=== PATIENT | male | born 1945 | race African-American/Black ===

== ENCOUNTER 2017-11-05 05:14 | Emergency (ER) | payer OTHER, MEDICARE ==
[2017-11-05 05:23] VITALS: BP 81/52; BMI 23.0
[2017-11-05] MEDS ORDERED: SODIUM CHLORIDE 1,000 ML IV STA (05:31)
--- NOTE | 2017-11-05 05:33 | PDOC ---
History of Present Illness - General History Source: Patient Exam Limitations: No Limitations - History of Present Illness Initial Comments: 11/05/17 05:44 The patient is a 71 year old male with a significant PMH of HTN who presents to the emergency department with generalized malaise and multiple associated complaints beginning approximately 2 days ago. The patient states he has not felt well for the past 2 days and is unable to adequately sleep. He states he feels like his blood pressure is low as he has also felt dizzy and weak over the same time period. The patient also reports associated intermittent nausea, shortness of breath, and palpitations. The patient states he has not eaten in the past 2 days secondary to his symptoms. The patient notes he has felt these symptoms in the past but is unsure what brings them about. The patient denies recent travel or sick contacts. He denies recent trauma. The patient denies chest pain and headache. Denies fever, chills, vomit, diarrhea and constipation. Denies dysuria, frequency, urgency and hematuria. Allergies: NKA Past surgical history: None reported. Social history: No reported cigarette, alcohol, or drug use. PCP: Dr. Mancia <Archie Guardado - Last Filed: 11/05/17 05:58> - General History Source: Patient <GuillermoFerny - Last Filed: 11/06/17 19:53> - General Chief Complaint: Blood Pressure Problem Stated Complaint: HYPOTENSION Time Seen by Provider: 11/05/17 05:24 Past History <Archie Guardado - Last Filed: 11/05/17 05:58> - Suicide/Smoking/Psychosocial Hx Smoking History: Never smoked Have you smoked in the past 12 months: No Information on smoking cessation initiated: No Hx Alcohol Use: No Drug/Substance Use Hx: No <Ferny Duran - Last Filed: 11/06/17 19:53> - Past Medical History Allergies/Adverse Reactions: Allergies Allergy/AdvReac Type Severity Reaction Status Date / Time No Known Allergies Allergy Verified 11/05/17 05:23 Home Medications: Ambulatory Orders Telmisartan 0 mg PO DAILY PRN 11/05/17 Review of Systems - Review of Systems Able to Perform ROS?: Yes Comments:: 11/05/17 05:44 CONSTITUTIONAL: (+) Generalized malaise. (+) Generalized weakness. (+) Loss of appetite. (+) Decreased sleep. Absent: fever, chills, diaphoresis. HEENT: Absent: rhinorrhea, nasal congestion, throat pain, throat swelling, difficulty swallowing, mouth swelling, ear pain, eye pain, visual Changes CARDIOVASCULAR: (+) Palpitations. Absent: chest pain, syncope,, irregular heart rate, lightheadedness, peripheral edema RESPIRATORY: (+) SHortness of breath. Absent: cough, dyspnea with exertion, orthopnea, wheezing, stridor, hemoptysis GASTROINTESTINAL: (+) Nausea. Absent: abdominal pain, abdominal distension, nausea, vomiting, diarrhea, constipation, melena, hematochezia GENITOURINARY: Absent: dysuria, frequency, urgency, hesitancy, hematuria, flank pain, genital pain MUSCULOSKELETAL: Absent: myalgia, arthralgia, joint swelling SKIN: Absent: rash, itching, pallor HEMATOLOGIC/IMMUNOLOGIC: Absent: easy bleeding, easy bruising, lymphadenopathy, frequent infections ENDOCRINE: Absent: unexplained weight gain, unexplained weight loss, heat intolerance, cold intolerance NEUROLOGIC: (+) Dizziness. Absent: headache, focal weakness or paresthesias, unsteady gait, seizure, mental status changes, bladder or bowel incontinence PSYCHIATRIC: Absent: anxiety, depression, suicidal or homicidal ideation, hallucinations. <Archie Guardado - Last Filed: 11/05/17 05:58> *Physical Exam - Vital Signs Last Vital Signs Temp Pulse Resp BP Pulse Ox 96.7 F L 101 H 19 81/52 97 11/05/17 05:19 11/05/17 05:19 11/05/17 05:19 11/05/17 05:19 11/05/17 05:19 - Physical Exam Comments: 11/05/17 05:44 GENERAL: (+) Mild distress. Well developed, well nourished. Awake and alert. HEENT: Normocephalic, atraumatic. PERRLA, EOMI. No conjunctival pallor. Sclera are non- icteric. Moist mucous membranes. Oropharynx is clear. NECK: Supple. Full ROM. No JVD. Carotid pulses 2+ and symmetric, without bruits. No thyromegaly. No lymphadenopathy. CARDIOVASCULAR: (+) Tachycardic. Regular rhythm. No murmurs, rubs, or gallops. Distal pulses are 2+ and symmetric. PULMONARY: (+) Tachypneic, worse when lying down. Lungs clear to auscultation bilaterally. No wheezing, rales or rhonchi. ABDOMINAL: Soft. Non-tender. Non-distended. No rebound or guarding. No organomegaly. Normoactive bowel sounds. MUSCULOSKELETAL Normal range of motion at all joints. No bony deformities or tenderness. No CVA tenderness. EXTREMITIES: (+) Minimal non-pitting LE edema bilaterally. No cyanosis. No clubbing. No calf tenderness. SKIN: Warm and dry. Normal capillary refill. No rashes. No jaundice. NEUROLOGICAL: Alert, awake, appropriate. Cranial nerves 2-12 intact. No deficits to light touch and temperature in face, upper extremities and lower extremities. No motor deficits in the in face, upper extremities and lower extremities. Normoreflexic in the upper and lower extremities. Normal speech. Toes are downgoing bilaterally. Gait is normal without ataxia. PSYCHIATRIC: Cooperative. Good eye contact. Appropriate mood and affect. <Archie Guardado - Last Filed: 11/05/17 05:58> - Vital Signs Last Vital Signs Temp Pulse Resp BP Pulse Ox 96.7 F L 101 H 19 81/52 97 11/05/17 05:19 11/05/17 05:19 11/05/17 05:19 11/05/17 05:19 11/05/17 05:19 <Ferny Duran - Last Filed: 11/06/17 19:53> Procedures - Intubation Time of Intubation: 06:50 Intubation Method: orotracheal Blade used: Gutierrez Tube Size (Fr): 7.5 Medications: Etomidate Tube position @ lip (cm): 22 Tube position confirmed by: Direct visualization, CO2 detector, Breath sounds Breath Sounds after Intubation: equal Intubation Complications: no complications <Ferny Duran - Last Filed: 11/06/17 19:53> Heart Score/ECG Review #1 11/05/17 05:58 EKG done at 5:17 Vent rate 102 bpm Sinus tachycardia Left axis deviation Possible lateral infarct, age undetermined Abnormal ECG <Archie Guardado - Last Filed: 11/05/17 05:58> ED Treatment Course - LABORATORY CBC & Chemistry Diagram: 11/05/17 06:00 11/05/17 06:00 <Ferny Duran - Last Filed: 11/06/17 19:53> Medical Decision Making - Medical Decision Making 11/05/17 07:41 Pt suddenly was becoming more tachypnic and in respiratory distress. Pt then lost his pulse at approximately 6:55 am. CPR started Pt intubated with 7.5 ET tube. Medications given. Pt regained his pulse at approximately 7:15am. Pt was placed on vent. Pt was given several liter of IVF and IV Abx were started for pneumonia. Pt lost his pulse again. CPR restarted. Pt given multiple round IV medications agained. Pt never regained his pulse. Pt was pronounced by me at 7:35 am. present and informed of his expiring. 11/06/17 19:53 Dr. Duran: The scribe's documentation has been prepared under my direction and personally reviewed by me in its entirery. I confirm that the note above accurately reflects all work, treatment, procedures, and medical decision making performed by me. <Ferny Duran - Last Filed: 11/06/17 19:53> *DC/Admit/Observation/Transfer - Attestations Scribe Attestion: 11/05/17 05:44 Documentation prepared by Archie Guardado, acting as medical logistics specialist for Ferny Duran DO. <Archie Guardado - Last Filed: 11/05/17 05:58> - Discharge Dispostion Admit: No <Ferny Duran - Last Filed: 11/06/17 19:53> Diagnosis at time of Disposition: Cardiac arrest Pneumonia Qualifiers: Pneumonia type: due to unspecified organism Sepsis Qualifiers: Sepsis type: sepsis due to unspecified organism Qualified Code(s): A41.9 - Sepsis, unspecified organism - Discharge Dispostion Disposition: Condition at time of disposition:
[2017-11-05 06:20] VITALS: PULSE 103
[2017-11-05 06:28] LABS: BASO % 0.2 % (0-2.0); HEMATOCRIT 34.8 % (35.4-49); HEMOGLOBIN 11.6 GM/dL (11.7-16.9); LYMPH % 6.5 % (8-40); MCH 31.3 pg (25.7-33.7); MCHC 33.4 g/dl (32.0-35.9); MEAN CELL VOLUME 93.7 fl (80-96); MONO % 6.2 % (3.8-10.2); NEUT % 87.1 % (42.8-82.8); PLATELET COUNT 144 K/MM3 (134-434); RBC 3.72 M/mm3 (4.00-5.60); RDW 15.1 % (11.9-15.9); WHITE BLOOD COUNT 7.6 K/mm3 (4.0-10.0)
[2017-11-05] MEDS ORDERED: AZITHROMYCIN IVPB 500 MG in DEXTROSE 5%-WATER - 250 ML IVPB ONE (06:32)
[2017-11-05 06:56] LABS: INR 1.12 (0.82-1.09); PROTHROMBIN TIME (PATIENT) 12.6 SEC (9.7-13.0)
[2017-11-05] MEDS ORDERED: RAPID SEQUENCE INTUBATION KIT NR ONE (06:56)
[2017-11-05] MEDS ORDERED: EPTIFIBATIDE 20 MG/10 ML VIAL IVPUSH ONE (07:15)
[2017-11-05] MEDS ORDERED: VANCOMYCIN 1,000 MG in DEXTROSE 5%-WATER - 250 ML IVPB ONE (07:20)
[2017-11-05] MEDS ORDERED: VANCOMYCIN 1 GRAM (PRE-DOCKED) 1,000 MG/250 ML BAG IVPB ONE (07:21)
[2017-11-05] MEDS ORDERED: PIPERACILLIN/TAZOB 4.5 GM 4.5 GM in DEXTROSE 5%-WATER 100 ML IVPB ONE (07:21)
[2017-11-05] MEDS ORDERED: PIPERACILLIN/TAZOB 4.5 GM 4.5 GM/100 ML BAG IVPB ONE (07:21)
[2017-11-05 07:37] LABS: ANION GAP 15 (8-16); BLOOD UREA NITROGEN 36 mg/dL (7-18); CALCIUM 7.5 mg/dL (8.5-10.1); CHLORIDE 103 mmol/L (98-107); CO2 18 mmol/L (21-32); GLUCOSE,RANDOM 265 mg/dL (74-106); SODIUM 136 mmol/L (136-145)
[2017-11-05 07:55] LABS: ALK PHOS 85 U/L (45-117); BILIRUBIN,TOTAL 1.4 mg/dL (0.2-1.0); CREATININE 4.7 mg/dL (0.7-1.3); SGPT/ALT 262 U/L (12-78); TOT PROT 6.2 g/dl (6.4-8.2)
[2017-11-05 08:29] LABS: SGOT/AST 490 U/L (15-37)
[2017-11-05 08:30] LABS: POTASSIUM 6.6 mmol/L (3.5-5.1)
[2017-11-05 08:35] VITALS: TEMP 96.9
--- NOTE | 2017-11-05 09:54 | EKG ---
Test Reason : Blood Pressure : / mmHG Vent. Rate : 102 BPM Atrial Rate : 102 BPM P-R Int : 160 ms QRS Dur : 124 ms QT Int : 374 ms P-R-T Axes : 051 -74 100 degrees QTc Int : 487 ms SINUS TACHYCARDIA LEFT AXIS DEVIATION POSSIBLE LATERAL INFARCT , AGE UNDETERMINED MARKED ST ABNORMALITY, POSSIBLE ANTERIOR SUBENDOCARDIAL INJURY ABNORMAL ECG NO PREVIOUS ECGS AVAILABLE Confirmed by LESTER DANIEL, NATALIA ([id number]) on 11/05/2017 9:53:37 AM Referred By: Confirmed By:NATALIA BATISTA MD
== END 2017-11-05 11:43 | disposition expired ==
LOC: JER 05:14
PROC: 5A12012 Performance of Cardiac Output, Single, Manual (ICD-10-PCS; principal; 2017-11-05)
PROC: 0BH17EZ Insertion of Endotracheal Airway into Trachea, Via Natural or Artificial Opening (ICD-10-PCS; 2017-11-05)
PROC: 5A1935Z Respiratory Ventilation, Less than 24 Consecutive Hours (ICD-10-PCS; 2017-11-05)
PROC: 3E02329 Introduction of Other Anti-infective into Muscle, Percutaneous Approach (ICD-10-PCS; 2017-11-05)
PROC: 3E0337Z Introduction of Electrolytic and Water Balance Substance into Peripheral Vein, Percutaneous Approach (ICD-10-PCS; 2017-11-05)
DX: I46.9 Cardiac arrest, cause unspecified (principal); I10 Essential (primary) hypertension
CPT/HCPCS: 31500; 36415; 71045-TC-FY; 80053; 82550; 82553; 82962; 83605; 83735; 83880; 84484; 85025; 85379; 85610; 86850; 86900; 86901; 87040; 92950; 93005; 93010; 96361; 96365; 96368; 99285-25; J7030